=== PATIENT | female | born 1965 | race Caucasian/White ===

== ENCOUNTER → 2019-04-24 11:34 | Outpatient (BNVA) | payer OTHER, SELFPAY | PROVIDERS: Family Provider Family Medicine; Visit Provider Urology | DX: I10 Essential (primary) hypertension (principal) | CPT/HCPCS: 80053; 80061 ==

== ENCOUNTER 2019-07-17 12:39 | Outpatient (CLI) | payer OTHER, SELFPAY ==
--- NOTE | 2019-07-17 12:50 | MM_ITS ---
WS: [id number] BILATERAL SCREENING DIGITAL MAMMOGRAM WITH CAD HISTORY: SCREEN COMPARISON: 04/12/2018, 01/09/2017 and 09/08/2015 Bilateral CC and MLO views submitted. Computer aided detection analyzed. Breast composition: The breasts are heterogeneously dense, which may obscure small masses. No suspici ous masses, microcalcifications or architectural distortion. Small nodules scattered throughout each breast and asymmetries. Stable since 2015. MM/[place] [id number] IMPRESSION: BI-RADS: 2-Benign FOLLOW UP: 1 Year Follow-up
== END 2019-07-17 12:40 | disposition home or self-care (01) ==
LOC: RADSHAW 12:46
PROVIDERS: PCP Nurse Practitioner Family; Visit Provider Nurse Practitioner Family
DX: Z12.31 Encounter for screening mammogram for malignant neoplasm of breast (principal)
CPT/HCPCS: 77067

== ENCOUNTER → 2020-03-15 10:02 | Outpatient (BNVA) | payer OTHER, SELFPAY | PROVIDERS: PCP Nurse Practitioner Family; Visit Provider Family Medicine | DX: Z20.828 Contact with and (suspected) exposure to other viral communicable diseases (principal) | CPT/HCPCS: 87635 ==

== ENCOUNTER → 2020-08-04 11:00 | Outpatient (BNVA) | payer OTHER, SELFPAY | PROVIDERS: PCP Nurse Practitioner Family; Visit Provider Urology | DX: Z12.11 Encounter for screening for malignant neoplasm of colon (principal); Z20.822 Contact with and (suspected) exposure to COVID-19 | CPT/HCPCS: 87635 ==

== ENCOUNTER 2020-08-09 06:33 | Day surgery (SDC) | payer OTHER, SELFPAY ==
--- NOTE | 2020-08-09 06:50 | P.HP_ITS ---
Same Day Surgery H&P Indication for Procedure/HPI DATE OF PROCEDURE: August 09, 2020 CHIEF COMPLAINT/INDICATIONFOR SURGICAL PROCEDURE: screening colonoscopy PREOP DIAGNOSIS: screening PLANNED PROCEDRUE: Operation Date: 08/09/20 07:30 Proposed Procedures p Colonoscopy 13753 Z12.11(Not Applicable) - Blayne Rivera MD Medications/Allergies* Home Medications Medication Instructions Recorded Confirmed Type amlodipine 10 mg tablet 10 mg PO DAILY 04/12/20 08/06/20 History potassium chloride 20 mEq 20 meq PO DAILY 04/12/20 08/06/20 History tablet,extended release(part/cryst) Allergies/Adverse Reactions Allergy/AdvReac Type Severity Reaction Status Date / Time No Known Allergies Allergy Verified 04/12/20 16:08 Pertinent History/Comorbid Conditions* Medical History (Updated 04/13/20 @ 08:58 by Mone Mercado DO) History of nonmelanoma skin cancer HTN (hypertension) Social History Smoking and tobacco status: never smoked Alcohol intake: current Alcohol intake frequency: few times a month Pertinent Exam Findings alert, oriented x 3 and regular rate & rhythm Recommendations Surgery/Procedure today Coding Level of Care Code Acute 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
[2020-08-09 06:51] VITALS: BP 162/103; PULSE 134; RESP 18; TEMP 37.1; O2SAT 97
[2020-08-09] MEDS: sodium chloride 0.9% 1,000 ML 30 ML IV (07:01)
[2020-08-09 07:02] LABS: OR HCG Qualitative Urine Negative (Negative)
--- NOTE | 2020-08-09 07:28 | ANES.PREANE2 ---
Pre-Anesthetic Assessment Pre-Anesthetic Assessment: Height/Weight: Height 1.6 m Weight 67.132 kg Temp Pulse Resp BP Pulse Ox 98.8 F 134 H 18 162/103 97 08/09/20 06:51 08/09/20 06:51 08/09/20 06:51 08/09/20 06:51 08/09/20 06:51 Preop Diagnosis: screening Proposed Procedure: Operation Date: 08/09/20 07:30 Proposed Procedures p Colonoscopy 22522 Z12.11(Not Applicable) - Blayne Rivera MD Last intake: Intake Last Liquid Date 08/08/20 Last Liquid Time 21:00 Last Solid Date 08/07/20 Last Solid Time 20:00 Social: Social History: Alcohol and No tobacco Exam: Pre-Anes Outpt Exam: alert, oriented x 3, clear to auscultation bilaterally and regular rate & rhythm Airway: Submandibular: WNL Cervical ROM: WNL MP: 2 Dentition: Full History/ROS: No significant history except as noted and No significant complaints Pulmonary: Pulmonary: None reported CV/HEM: CV/HEM: HTN : : None reported Hepatic: Hepatic: None reported GI: GI: None reported Metabolic: Metabolic: None reported Musc/skel: Musc/skel: None reported Neuropsych: Neuropsych: None reported Anesthetic Plan: ASA status: 2 Anesthesia: MAC Risk of > 500 ml blood loss (7ml/kg in children): No Meds/Allergies Current Medications: Current Medications Generic Name Dose Route Start Last Admin Trade Name Freq PRN Reason Stop Dose Admin Sodium Chloride 1,000 mls @ 30 ml s/hr 08/09/20 06:45 08/09/20 07:01 Sodium Chloride 0.9% IV 08/10/20 06:44 30 mls/hr .Q24H JEANNA Administration PFSH Anesthesia PFSH: Medical History History of nonmelanoma skin cancer HTN (hypertension) Social History Smoking and tobacco status: never smoked Alcohol intake: current Alcohol intake frequency: few times a month Data Anesthesia Other Labs: Laboratory Results - last 48 hr 08/09/20 06:44 Urine HCG, Qual Negative Cardiac Studies: No Data to Display
[2020-08-09 07:53] VITALS: BP 112/71; PULSE 82; RESP 18; TEMP 36.3; O2SAT 94
[2020-08-09 08:06] VITALS: BP 128/85; PULSE 85; RESP 18; O2SAT 99
--- NOTE | 2020-08-09 14:21 | ANE.PACU2 ---
Inpatient post-anesthesia follow up: Airway intact: Yes Vital signs: Temperature 97.4 F Pulse Rate 85 Respiratory Rate 18 Blood Pressure 128/85 Pulse Oximetry 99 Oxygen Delivery Me thod Room Air Oxygen Flow Rate Fraction of Inspir ed Oxygen Hydration adequate: Yes Nausea and vomiting: No Pain level: 2 Mental status: Baseline
== END 2020-08-09 08:37 | disposition home or self-care (01) ==
PROVIDERS: Anesthesiology; PCP Nurse Practitioner Family; Visit Provider Surgery
PROC: 0DJD8ZZ Inspection of Lower Intestinal Tract, Via Natural or Artificial Opening Endoscopic (ICD-10-PCS; CPT 45378; principal; 2020-08-09 07:30)
DX: Z12.11 Encounter for screening for malignant neoplasm of colon (principal); D12.2 Benign neoplasm of ascending colon; D12.4 Benign neoplasm of descending colon; K57.30 Diverticulosis of large intestine without perforation or abscess without bleeding; I10 Essential (primary) hypertension; Z85.828 Personal history of other malignant neoplasm of skin
CPT/HCPCS: 45380; 81025; 84703; 88305; 96360; J2370; J2704; J7030

== ENCOUNTER 2020-08-13 14:35 | Outpatient (CLI) | payer OTHER, SELFPAY ==
--- NOTE | 2020-08-13 14:43 | MM_ITS ---
WS: [id number] SCREENING DIGITAL MAMMOGRAM WITH CAD HISTORY: SCREENING COMPARISON: 07/17/2019 and 04/12/2018 Bilateral CC and MLO views submitted. Computer aided detection analyzed. Breast composition: The breasts are heterogeneously dense, which may obscure small masses. Increasing asymmetry measuring 1.5 cm just central to the and RIGHT nipple. This may be just below the nipple l ine on the lateral projection. No suspicious masses or calcifications. MM/[place] [id number] IMPRESSION: BI-RADS: 0-Incomplete: Need additional imaging evaluation FOLLOW UP: Need Additional Imaging RIGHT breast: Spot compression views (CC and MLO). True ML. Ultrasound to follo w if abnormality persists.
== END 2020-08-13 14:36 | disposition home or self-care (01) ==
LOC: RADSHAW 14:41
PROVIDERS: PCP Nurse Practitioner Family; Visit Provider Nurse Practitioner Family
DX: Z12.31 Encounter for screening mammogram for malignant neoplasm of breast (principal)
CPT/HCPCS: 77067

== ENCOUNTER 2020-08-20 14:07 | Outpatient (CLI) | payer OTHER, SELFPAY ==
--- NOTE | 2020-08-20 14:37 | US_ITS ---
WS: [id number] ADDITIONAL VIEWS RIGHT BREAST RIGHT breast ultrasound, limited HISTORY: ABNORMAL MAMMO COMPARISON: 08/13/2020 and 07/17/2019 Compression views right CC and MLO projection. True ML also submitted. Asymmetry persists but becomes less concerning and less dense on the additional views. This asymmetry is in the anterior breast and just lateral to the nipple. RIGHT breast ultrasound, limited. Ultrasound is performed around the nipple in the anterior breast. There are mildly prominent ducts. T here is increased debris within one of the ducts at the nipple. No suspicious mass. US/US breast RT limited* [id number] IMPRESSION: BI-RADS: 3-Probably Benign FOLLOW-UP: 6 Month Follow-up Due to the slight changes in the parenchymal pattern since the prior mammogram of 07/17/2019 month follow-up is recommended. Diagnostic RIGHT mammogram and ult rasound follow-up recommended.
== END 2020-08-20 14:08 | disposition home or self-care (01) ==
LOC: RADSHAW 14:11
PROVIDERS: PCP Nurse Practitioner Family; Visit Provider Nurse Practitioner Family
DX: R92.8 Other abnormal and inconclusive findings on diagnostic imaging of breast (principal)
CPT/HCPCS: 76642; 77065

== ENCOUNTER 2021-03-02 09:52 | Outpatient (CLI) | payer OTHER, SELFPAY ==
--- NOTE | 2021-03-02 10:04 | US_ITS ---
WS: [id number] ADDITIONAL VIEWS RIGHT BREAST RIGHT breast ultrasound, limited HISTORY: RT ABNORMAL MAMMO COMPARISON: 08/20/2020, 08/13/2020, 07/17/2019 and 04/12/2018 Compression views right CC and MLO projection. True ML also submitted. Asymmetry in the anterior RIGHT breast has improved since the prior examination. There is still promi nent interstitial thickening of fibroglandular tissue which has been stable. RIGHT breast ultrasound, limited. The asymmetry in the areolar region at 9:00 is again identified. This is a hypoechoic triangular nodu le measuring 6 x 8 x 3 mm with no increased vascularity. I suspect this is probably inspissated mater ial within a duct. US/US breast RT limited* [id number] IMPRESSION: BI-RADS: 3-Probably Benign FOLLOW-UP: 6 Month Follow-up Patient to return for annual mammogram in August 2021. Recommend six-month ultras ound follow-up RIGHT breast to document stability of what is probably duct ecta usama at the areola.
== END 2021-03-02 09:53 | disposition home or self-care (01) ==
LOC: RADSHAW 09:56
PROVIDERS: PCP Clinical Nurse Specialist Adult Health; Visit Provider Clinical Nurse Specialist Adult Health
DX: R92.8 Other abnormal and inconclusive findings on diagnostic imaging of breast (principal)
CPT/HCPCS: 76642; 77065

== ENCOUNTER 2021-08-30 09:22 | Outpatient (CLI) | payer OTHER, SELFPAY ==
--- NOTE | 2021-08-30 09:34 | MM_ITS ---
WS: [id number] DIAGNOSTIC BILATERAL DIGITAL BREAST TOMOSYNTHESIS MAMMOGRAPHY WITH CAD RIGHT breast ultrasound, limited HISTORY: RT ABNORMAL MAMMOGRAM, 6 month follow-up RIGHT breast. COMPARISON: None available. TECHNIQUE: Bilateral craniocaudad, mediolateral oblique, and mediolateral views are submitted with to mosynthlora and SM. Spot compression RIGHT CC and MLO. Computer aided detection utilized. Breast composition: The breasts are heterogeneously dense, which may obscure small masses. The asymme try previously described in the anterior RIGHT breast has essentially resolved. There is no asymmetry identified on today's study. Mildly prominent trabecular pattern is diffuse throughout and bilateral . No suspicious mass or calcification. Ultrasound RIGHT breast, limited. Ultrasound of the RIGHT breast is directed to the similar location as prior examinations in the area look region and at 9:00. Again noted is the hypoechoic area very superficial at 9:00 measuring 6 x 3 x 7 mm. No increased vascularity or change. No increase in size. MM/[place] [id number] IMPRESSION: BI-RADS: 2-Benign FOLLOW UP: 1 Year Follow-up
== END 2021-08-30 09:23 | disposition home or self-care (01) ==
LOC: RAD 09:23
PROVIDERS: Visit Provider Clinical Nurse Specialist Adult Health
DX: R92.8 Other abnormal and inconclusive findings on diagnostic imaging of breast (principal)
CPT/HCPCS: 76642; 77062

== ENCOUNTER → 2021-09-14 08:02 | Outpatient (BNVA) | payer OTHER, SELFPAY | PROVIDERS: Visit Provider Clinical Nurse Specialist Adult Health | DX: Z20.822 Contact with and (suspected) exposure to COVID-19 (principal) | CPT/HCPCS: 87426 ==

== ENCOUNTER → 2021-10-17 16:12 | Outpatient (BNVA) | payer OTHER, SELFPAY | PROVIDERS: PCP Clinical Nurse Specialist Adult Health; Visit Provider Clinical Nurse Specialist Adult Health | DX: R63.5 Abnormal weight gain (principal); I10 Essential (primary) hypertension | CPT/HCPCS: 84436; 84443; 84481 ==

== ENCOUNTER → 2021-12-12 07:55 | Outpatient (BNVA) | payer OTHER, SELFPAY | PROVIDERS: PCP Clinical Nurse Specialist Adult Health; Visit Provider Clinical Nurse Specialist Adult Health | DX: I10 Essential (primary) hypertension (principal) | CPT/HCPCS: 80053; 80061; 85025 ==

== ENCOUNTER → 2022-04-26 15:54 | Outpatient (BNVA) | payer OTHER, SELFPAY | PROVIDERS: PCP Clinical Nurse Specialist Adult Health; Visit Provider Clinical Nurse Specialist Adult Health | DX: E66.01 Morbid (severe) obesity due to excess calories (principal) | CPT/HCPCS: 80053 ==

== ENCOUNTER → 2022-05-29 15:44 | Outpatient (BNVA) | payer OTHER, SELFPAY | PROVIDERS: PCP Clinical Nurse Specialist Adult Health; Visit Provider Clinical Nurse Specialist Adult Health | DX: R89.9 Unspecified abnormal finding in specimens from other organs, systems and tissues (principal) | CPT/HCPCS: 80053 ==

== ENCOUNTER 2022-09-15 08:41 | Outpatient (CLI) | payer OTHER, SELFPAY ==
--- NOTE | 2022-09-15 08:50 | MM_ITS ---
WS: [id number] Bilateral screening 3D tomosynthesis digital mammogram, 09/15/2022 Clinical Data: SCREENING Comparison: 08/30/2021, 03/02/2021, 08/20/2020, 08/13/2020, 07/17/2019, 04/12/2018, 01/05/2017, 09/08/2015, , 04/11/2012. Findings: The breast parenchymal pattern shows heterogeneous density. No spiculated masses or clustered calcifi cations are seen. There are no secondary signs of carcinoma. MM/[place] [id number] Impression: 1. Negative bilateral mammogram unchanged. 2. Recommend annual screening mammograms. BIRADS: 1-Negative FOLLOW UP: 1 Year Follow-up The CAD brick paving checker was used.
== END 2022-09-15 08:42 | disposition home or self-care (01) ==
PROVIDERS: PCP Clinical Nurse Specialist Adult Health; Visit Provider Clinical Nurse Specialist Adult Health
DX: Z12.31 Encounter for screening mammogram for malignant neoplasm of breast (principal)
CPT/HCPCS: 77063; 77067

== ENCOUNTER → 2022-11-14 15:24 | Outpatient (BNVA) | payer OTHER, SELFPAY | PROVIDERS: PCP Clinical Nurse Specialist Adult Health; Visit Provider Clinical Nurse Specialist Adult Health | DX: I10 Essential (primary) hypertension (principal) | CPT/HCPCS: 80048 ==

== ENCOUNTER → 2023-05-18 10:23 | Outpatient (BNVA) | payer OTHER, SELFPAY | PROVIDERS: PCP Clinical Nurse Specialist Adult Health; Visit Provider Clinical Nurse Specialist Adult Health | DX: I10 Essential (primary) hypertension (principal) | CPT/HCPCS: 80053; 80061; 84443; 85025 ==

== ENCOUNTER 2023-10-03 15:08 | Outpatient (CLI) | payer OTHER, SELFPAY ==
--- NOTE | 2023-10-03 15:14 | MM_ITS ---
WS: [id number] Bilateral screening 3D tomosynthesis digital mammogram, 10/03/2023 Clinical Data: SCREENING Comparison: 09/15/2022, 08/30/2021, 03/02/2021, 08/20/2020, 08/13/2020, 07/17/2019, 04/12/2018, 01/05/2007, , 03/27/2014, 04/11/2012. Findings: The breast parenchymal pattern shows heterogeneous density. No spiculated masses or clustered calcifi cations are seen. There are no secondary signs of carcinoma. MM/[place] [id number] Impression: 1. Negative bilateral mammogram unchanged. 2. Recommend annual screening mammograms. BIRADS: 1-Negative FOLLOW UP: 1 Year Follow-up The CAD baggage security checker was used.
== END 2023-10-03 15:09 | disposition home or self-care (01) ==
LOC: RAD 15:08
PROVIDERS: PCP Clinical Nurse Specialist Adult Health; Visit Provider Clinical Nurse Specialist Adult Health
DX: Z12.31 Encounter for screening mammogram for malignant neoplasm of breast (principal)
CPT/HCPCS: 77063; 77067